=== PATIENT | male | born 1975 | race Asian ===

== ENCOUNTER 2020-03-06 04:56 | Emergency (ER) | payer OTHER ==
[~2020-03-06] VITALS: Ht 165.1 cm; Wt 70.0 kg
[2020-03-06] MEDS ORDERED: IV NORMAL SALINE 1,000ML 1,000 ML IV ONE (05:45)
--- NOTE | 2020-03-06 05:55 | PHYS DOC ---
Past History Past Medical History: GERD, GI Bleed, Hypertension Past Surgical History: Other Additional Past Surgical Histo: LT shoulder, hernia rep Smoking: Non-smoker Alcohol Use: Occasionally Drug Use: None General Adult EDM: Chief Complaint: GI PROBLEM HPI: HPI: 44-year-old male with past medical history of bleeding ulcer presents with 1 day history of nausea and vomiting with bloody vomitus and associated dark tarry stools. Patient reports history of gastritis for which he is prescribed Protonix. Reports is been unable to keep his medications down. Denies dizziness or lightheadedness. Denies fever or chills. Denies known sick contacts. Patient reports history of similar which required hospitalization and blood transfusions. Review of Systems: Review of Systems: Constitutional: Denies fever or chills Eyes: Denies redness or eye pain HENT: Denies nasal congestion or sore throat Respiratory: Denies cough or shortness of breath Cardiovascular: Denies chest pain or palpitations GI: Reports epigastric abdominal pain, nausea, vomiting, and melena : Denies dysuria or hematuria Musculoskeletal: Denies back pain or joint pain Integument: Denies rash or skin lesions Neurologic: Denies headache, focal weakness or sensory changes; denies dizziness or lightheadedness Complete systems were reviewed and found to be within normal limits, except as documented in this note. Current Medications: Current Meds: Current Medications Medications (Trade) Dose Ordered Sig/Kulwant Start Time Stop Time Status Last Admin Dose Admin Ondansetron HCl (Zofran) 4 mg 1X ONCE 03/06/20 05:45 03/06/20 05:46 UNV Pantoprazole Sodium (Protonix Vial) 40 mg 1X ONCE 03/06/20 05:45 03/06/20 05:46 UNV Sodium Chloride 1,000 ml @ 1,000 mls/hr 1X ONCE 03/06/20 05:45 03/06/20 06:44 UNV Physical Exam: PE: Constitutional: Well developed, well nourished, no acute distress, non-toxic appearance HENT: Normocephalic, atraumatic Eyes: Conjunctiva normal, no discharge Neck: Normal range of motion, no tenderness, supple Lungs & Thorax: No respiratory distress, equal chest rise and fall Abdomen: Soft, no tenderness, no guarding/rebound tenderness Skin: Warm, dry, no erythema, no rash Back: No tenderness, no CVA tenderness Extremities: No tenderness, ROM intact, no edema Neurologic: Alert and oriented X 3, no focal deficits noted Psychologic: Affect normal, judgment normal Current Patient Data: Vital Signs: Vital Signs Date Time Temp Pulse Resp B/P (MAP) Pulse Ox O2 Delivery O2 Flow Rate FiO2 03/06/20 05:15 97.0 99 20 163/117 (132) 96 Room Air EKG: EKG: @0628 NSR at 77bpm, NO ST elevation, QRS 102ms, QT/QTc 408/464ms Radiology/Procedures: Radiology/Procedures: [] Course & Med Decision Making: Course & Med Decision Making Pertinent Lab studies reviewed. (See chart for details) Patient with past medical history of bleeding ulcer presents with epigastric abdominal pain and associated nausea and vomiting. Patient also reporting hemoptysis and melena. Labs obtained and posted to chart. H/H stable. Small bilirubin elevation. IV fluid hydration provided. Protonix IV given. Patient stable for discharge with outpatient follow-up with PCP/GI. Discussed findings and plan with patient, who acknowledges understanding and agreement. Rosa Disclaimer: Rosa Disclaimer: This electronic medical record was generated, in whole or in part, using a voice recognition dictation system. Departure Departure: Impression: Primary Impression: Nausea & vomiting Qualified Codes: R11.2 - Nausea with vomiting, unspecified Additional Impression: History of GI bleed Disposition: HOME/RESIDENCE PRIOR TO ADM Condition: STABLE Referrals: [facility]PROBERT (PCP) JG BARNHART MD Patient Instructions: Gastrointestinal Bleeding, [id number], Nausea and Vomiting, [id number] Scripts Ondansetron (ONDANSETRON ODT) 4 Mg Tab.rapdis 1 TAB PO PRN Q6-8HRS PRN for NAUSEA, #16 TAB Prov: MARNIE KEENE DO 03/06/20 Justification of Admission: Justification of Admission: Justification of Admission Dx: N/A MARNIE KEENE DO Mar 06, 2020 05:55
[2020-03-06] MEDS ORDERED: ONDANSETRON PF 4 MG/2 ML VIAL. ONE (05:58)
[2020-03-06] MEDS ORDERED: ONDANSETRON PF 4 MG/2 ML VIAL. IVP ONE (06:00)
[2020-03-06] MEDS ORDERED: PANTOPRAZOLE IV 40 MG VIAL. IVP ONE (06:00)
[2020-03-06 06:22] LABS: BASO % 1 % (0-3); EOS % 1 % (0-3); HEMATOCRIT 46.4 % (39.0-53.0); HEMOGLOBIN 15.9 g/dL (13.0-17.5); LYMPH % 22 % (24-48); MEAN CORPUSCULAR HEMOGLOBIN 33 pg (25-35); MEAN CORPUSCULAR HGB CONC 34 g/dL (31-37); MEAN CORPUSCULAR VOLUME 95 fL (79-100); MONO # 0.5 x10^3/uL (0.0-1.1); MONO % 11 % (0-9); NEUT # 2.9 x10^3uL (1.8-7.7); NEUT % 66 % (31-73); PLATELET COUNT 204 x10^3/uL (140-400); RED BLOOD COUNT 4.87 x10^6/uL (4.30-5.70); RED CELL DISTRIBUTION WIDTH 12.7 % (11.5-14.5); WHITE BLOOD COUNT 4.4 x10^3/uL (4.0-11.0)
[2020-03-06 06:33] LABS: CALCIUM 9.2 mg/dL (8.5-10.1); CREATININE 1.1 mg/dL (0.7-1.3); GFR 72.7
[2020-03-06 06:39] LABS: ALBUMIN 4.3 g/dL (3.4-5.0); ALBUMIN/GLOBULIN RATIO 1.1 (1.0-1.7); MAGNESIUM 1.8 mg/dL (1.8-2.4); TOTAL BILIRUBIN 2.3 mg/dL (0.2-1.0); TOTAL PROTEIN 8.1 g/dL (6.4-8.2)
[2020-03-06 07:03] VITALS: BP 135/89
[2020-03-06] MEDS ORDERED: ONDA4TAB12 PO (07:31)
--- NOTE | 2020-03-06 07:38 | EKG ---
[address] [address] Test Date: 2020-03-06 Test Time: 06:28:00 Pat Name: LETTY SAMSON Department: Room: Gender: M Failure Analysis Technician: MARINA : 1975 Requested By: MARNIE KEENE Order Number: [id number] Reading MD: Measurements Intervals [place] Rate: 77 P: 0 MT: 138 QRS: -26 QRSD: 102 T: -27 QT: 408 QTc: 464 Interpretive Statements SINUS RHYTHM LEFTWARD AXIS LOW LIMB LEAD VOLTAGE QRS(T) CONTOUR ABNORMALITY CONSIDER INFERIOR MYOCARDIAL DAMAGE POSSIBLY ABNORMAL ECG RI6.02 No previous ECG available for comparison
== END 2020-03-06 07:35 | disposition home or self-care (01) ==
LOC: ER 04:56
DX: R11.2 Nausea with vomiting, unspecified (principal); R10.13 Epigastric pain; K21.9 Gastro-esophageal reflux disease without esophagitis; I10 Essential (primary) hypertension
CPT/HCPCS: 36415; 80053; 82553; 83690; 83735; 84484; 85025; 85610; 85730; 93005; 96361; 96374; 96375; 99284; C9113; J2405; J7030